=== PATIENT | female | born 1945 | race Two or more races ===

== ENCOUNTER 2017-03-17 12:47 | Inpatient (IN) | payer MEDICAID ==
[~2017-03-17] VITALS: Ht 157.5 cm; Wt 88.8 kg
[2017-03-17] MEDS ORDERED: FUROSEMIDE 40 MG/4 ML VIAL IV ONE (13:00)
[2017-03-17] MEDS ORDERED: NITROGLYCERIN 0.4 MG SL TAB SL ONE ×2 (13:31→13:45)
[2017-03-17 14:01] LABS: DEFINITIVE VIEW TRANSMISSION; Hematocrit 29.7 % (36.0-46.0); Mean Corpuscular Hemoglobin 35.1 pg (28.0-32.0); Mean Corpuscular Hgb Conc. 33.7 g/dL (32.0-36.0); Mean Corpuscular Volume 104.2 fL (80.0-100.0); Mean Platelet Volume 8.9 fL (7.4-10.4); Platelet Count (auto) 241 10^3/uL (140-450); SUSPECT VIEW TRANSMISSION; White Blood Cell 14.2 10^3/uL (4.4-10.8)
[2017-03-17 14:06] LABS: Urine Bilirubin Negative (Negative); Urine Color Yellow (Yellow); Urine Glucose Normal (Normal); Urine Ketone Negative (Negative); Urine Nitrite Negative (Negative); Urine RBC 11 /hpf (0 - 4); Urine Squamous Epithelial Cell FEW /hpf (<5); Urine Urobilinogen Normal (Negative)
[2017-03-17 14:16] LABS: Albumin 2.2 g/dL (3.4-5.0); BUN/Creatinine Ratio 27.5; Bilirubin, Total 0.7 mg/dL (0.2-1.0); Calcium 8.6 mg/dL (8.5-10.1); Lactic Acid w/Reflex 2.4 mmol/L (0.4-2.0); Magnesium 2.2 mg/dL (1.6-2.6); Potassium 4.9 mmol/L (3.5-5.1); Red Cell Distribution Width 22.9 % (11.6-16.0); Total Protein 5.7 g/dL (6.4-8.2)
[2017-03-17 14:17] LABS: Metamyelocytes % 0; Myelocytes % 0; Promyelocytes % 0; Reactive Lymphocytes 0
[2017-03-17 14:18] LABS: Urine Blood 2+ /uL (Negative)
[2017-03-17 14:23] LABS: B-Type Natriuretic Peptide 1185.3 pg/mL (0-100)
[2017-03-17 14:26] LABS: Temperature: 22.5 C (20.0-25.0)
[2017-03-17 14:45] LABS: REFLEX LACTIC ACID YES OR NO YES
[2017-03-17 14:58] LABS: Platelet Estimate Adequate
[2017-03-17 15:00] LABS: Anisocytosis Slight; Burr Cells FEW; Macrocytosis Slight; Ovalocytes FEW; Schistocytes FEW; Tear Drop Cells FEW
[2017-03-17] MEDS ORDERED: ONDANSETRON HCL 4 MG/2 ML VIAL IV PRN (15:00)
[2017-03-17] MEDS ORDERED: cefTRIAXone 1GM/50ML D5W 50 ML IV ONE (15:00)
[2017-03-17] MEDS ORDERED: HYDROcodone-ACET 5/325MG TAB PO PRN (15:00)
[2017-03-17] MEDS ORDERED: NITROGLYCERIN 0.4 MG SL TAB SL PRN (15:00)
[2017-03-17] MEDS ORDERED: MORPHINE SULF INJ 2 MG/ML SYRINGE 1ML IV PRN ×2 (15:00)
[2017-03-17] MEDS ORDERED: SODI650T PO (15:03)
[2017-03-17] MEDS ORDERED: DOCU-94 PO (15:03)
[2017-03-17] MEDS ORDERED: GABA-494 PO (15:03)
[2017-03-17] MEDS ORDERED: ATOR20TA50 PO (15:03)
[2017-03-17] MEDS ORDERED: LOPE1TAB9 PO (15:06)
[2017-03-17] MEDS ORDERED: ONDA8TAB6 PO (15:06)
[2017-03-17] MEDS ORDERED: PANC3600 PO (15:06)
[2017-03-17] MEDS ORDERED: FERR27TA2 PO (15:06)
[2017-03-17] MEDS ORDERED: LOSA100T27 PO (15:09)
[2017-03-17] MEDS ORDERED: CAR125T PO (15:09)
[2017-03-17] MEDS ORDERED: HCTZ25T PO (15:09)
[2017-03-17] MEDS ORDERED: PRO10T PO (15:09)
[2017-03-17] MEDS ORDERED: CARI-277 PO (15:09)
[2017-03-17] MEDS ORDERED: GLIM1TAB2 PO (15:09)
[2017-03-17] MEDS ORDERED: MEGE40SU PO (15:09)
[2017-03-17] MEDS ORDERED: BACL10TA PO (15:11)
[2017-03-17] MEDS ORDERED: METF-371 PO (15:11)
[2017-03-17] MEDS ORDERED: NITR0.2D12 TD (15:11)
[2017-03-17] MEDS ORDERED: OMEP20CA74 PO (15:12)
[2017-03-17 15:15] LABS: Allen Test Yes; Base Excess -8.7 mmol/L (-2.0-2.0); Blood COHb 0.3 % (0.5-1.5); Blood MetHb 0.4 % (0.0-1.5); HCO3 16.1 mmol/L (22-26.0); MODE MASK - BIPAP; O2Hb 98.3 % (94.0-97.0); PO2 455.4 mmHg (80.0-100.0); PO2(T) 455.4 mmHg (80.0-100.0); Room ED-15; Sample Type Arterial; Spont Vt 646; pH 7.333 (7.350-7.450)
[2017-03-17] MEDS ORDERED: ISOSORBIDE MONONITRATE 60 MG TAB PO ONE (15:15)
[2017-03-17] MEDS ORDERED: CARVEDILOL 12.5 MG TAB PO ONE (15:30)
[2017-03-17] MEDS ORDERED: PANTOPRAZOLE SODIUM 40 MG/10 ML VIAL IV ONE (15:30)
[2017-03-17] MEDS: InsuLIN REG 1unit/0.01ml Soln (100units/ml) SC SCH (18:00)
[2017-03-17] MEDS: ACCU-CHEK COMFORT CURVE STRIP VI SCH (18:15)
[2017-03-17 18:43] VITALS: BP 134/90
[2017-03-17] MEDS: CARVEDILOL 12.5 MG TAB PO SCH (22:00)
[2017-03-17] MEDS: metroNIDAZOLE 500MG/100ML 100 ML IV SCH (22:00)
[2017-03-17] MEDS ORDERED: IPRATROPIUM BROM 0.5 MG/2.5ML INH SOL NEB ONE (22:45)
[2017-03-17] MEDS ORDERED: ALBUTEROL SULF 2.5 MG/0.5ML(0.5%) NEB SOLN NEB ONE (22:45)
[2017-03-17] MEDS: LABETALOL HCL 5 MG/ML 4ML SYRINGE IV PRN (22:56)
[2017-03-17 23:15] LABS: Allen Test Yes; Base Excess -9.7 mmol/L (-2.0-2.0); Blood 02Sat 93.9 % (96-100); Blood COHb 0.3 % (0.5-1.5); Blood MetHb 0.4 % (0.0-1.5); HCO3 16.4 mmol/L (22-26.0); HHb 6.1 % (0.0-5.0); MODE MASK - SIMPLE; O2Hb 93.2 % (94.0-97.0); PCO2 36.6 mmHg (35.0-45.0); PCO2(T) 36.6 mmHg (35.0-45.0); PO2 85.2 mmHg (80.0-100.0); PO2(T) 85.2 mmHg (80.0-100.0); Room 1014-ERT; Sample Type Arterial
[2017-03-18] VITALS (12 sets, daily range): BP systolic 104–136; BP diastolic 54–89
[2017-03-18] MEDS ORDERED: IPRATROPIUM BROM 0.5 MG/2.5ML INH SOL NEB ONE
[2017-03-18] MEDS ORDERED: ALBUTEROL SULF 2.5 MG/0.5ML(0.5%) NEB SOLN NEB ONE
[2017-03-18] MEDS ORDERED: FUROSEMIDE 40 MG/4 ML VIAL IV ONE
[2017-03-18] MEDS ORDERED: SODIUM BICARBONATE 8.4 % INJ 50ML VIAL IV ONE (02:30)
[2017-03-18 04:25] LABS: Basophils # (auto) 0 uL; DEFINITIVE VIEW TRANSMISSION; Eosinophils # (auto) 0 uL; Lymphocytes # (auto) 0.8 uL; Lymphocytes % (auto) 7.8 % (10.0-50.0); Mean Corpuscular Hemoglobin 35.6 pg (28.0-32.0); Mean Corpuscular Hgb Conc. 34.5 g/dL (32.0-36.0); Mean Corpuscular Volume 103.1 fL (80.0-100.0); Mean Platelet Volume 8.4 fL (7.4-10.4); Monocytes # (auto) 1.3 uL; Monocytes % (auto) 12.4 % (0.0-12.0); Neutrophils # (auto) 8.7 uL; Neutrophils % (auto) 79.8 % (37.0-80.0); Platelet Count (auto) 162 10^3/uL (140-450); SUSPECT VIEW TRANSMISSION; White Blood Cell 10.8 10^3/uL (4.4-10.8)
[2017-03-18 04:30] LABS: Red Cell Distribution Width 22.3 % (11.6-16.0)
[2017-03-18 04:31] LABS: Hematocrit 23.1 % (36.0-46.0); Hemoglobin 8.2 g/dL (12.2-16.2)
[2017-03-18 04:32] LABS: Albumin 1.8 g/dL (3.4-5.0); BUN/Creatinine Ratio 26.8; Calcium 8.1 mg/dL (8.5-10.1); Partial Thromboplastin Time 25.9 sec (22.64-33.71); Potassium 5.2 mmol/L (3.5-5.1)
[2017-03-18 04:34] LABS: Bilirubin, Total 0.6 mg/dL (0.2-1.0); Total Protein 4.9 g/dL (6.4-8.2)
[2017-03-18 04:49] LABS: INR 1.42 (0.9-1.15); Prothrombin Time 15.5 sec (9.37-12.3)
[2017-03-18] MEDS: InsuLIN REG 1unit/0.01ml Soln (100units/ml) SC SCH ×4 (06:00→18:35)
[2017-03-18] MEDS: ACCU-CHEK COMFORT CURVE STRIP VI SCH ×4 (06:10→18:00)
[2017-03-18] MEDS: metroNIDAZOLE 500MG/100ML 100 ML IV SCH ×3 (06:10→21:02)
[2017-03-18 06:34] LABS: Burr Cells FEW; Macrocytosis Slight; Platelet Estimate Adequate; Polychromasia Slight
[2017-03-18 06:35] LABS: Anisocytosis Slight
[2017-03-18 08:30] LABS: Allen Test Yes; Base Excess -4.7 mmol/L (-2.0-2.0); Blood 02Sat 95.7 % (96-100); Blood MetHb 0.4 % (0.0-1.5); HCO3 18.4 mmol/L (22-26.0); HHb 4.3 % (0.0-5.0); MODE MASK - BIPAP; O2Hb 95.3 % (94.0-97.0); PCO2 26.4 mmHg (35.0-45.0); PCO2(T) 26.4 mmHg (35.0-45.0); PIP 12; PO2 90.8 mmHg (80.0-100.0); PO2(T) 90.8 mmHg (80.0-100.0); Pressure Support 7; Room 1014-ERT; Sample Type Arterial
[2017-03-18] MEDS: cefTRIAXone 1GM/50ML D5W 50 ML IV SCH (09:10)
[2017-03-18] MEDS: CARVEDILOL 12.5 MG TAB PO SCH (10:00)
[2017-03-18] MEDS: ISOSORBIDE MONONITRATE 60 MG TAB PO SCH (10:00)
[2017-03-18] MEDS: PANTOPRAZOLE SODIUM 40 MG/10 ML VIAL IV SCH (10:21)
[2017-03-18] MEDS: ENOXAPARIN SOD 40 MG/0.4 ML SYRINGE SC SCH (10:21)
[2017-03-18] MEDS ORDERED: CARVEDILOL 3.125 MG TAB PO ONE (18:15)
[2017-03-18] MEDS ORDERED: SPIRONOLACTONE 25 MG TAB PO ONE (18:15)
[2017-03-18] MEDS: BUMETANIDE (0.25MG/ML) 4 ML VIAL IV SCH (18:36)
[2017-03-18] MEDS: LORazepam 2MG/ML-1ML VIAL IV PRN (19:03)
[2017-03-18] MEDS: CARVEDILOL 3.125 MG TAB PO SCH (21:02)
[2017-03-19] VITALS (8 sets, daily range): BP systolic 118–151; BP diastolic 69–89
[2017-03-19] MEDS: ACCU-CHEK COMFORT CURVE STRIP VI SCH ×4 (00:01→18:07)
[2017-03-19] MEDS: BUMETANIDE (0.25MG/ML) 4 ML VIAL IV SCH ×2 (05:29→18:37)
[2017-03-19] MEDS: metroNIDAZOLE 500MG/100ML 100 ML IV SCH ×3 (05:30→20:57)
[2017-03-19] MEDS: SPIRONOLACTONE 25 MG TAB PO SCH ×2 (05:30→18:00)
[2017-03-19] MEDS: LORazepam 2MG/ML-1ML VIAL IV PRN (05:43)
[2017-03-19] MEDS: InsuLIN REG 1unit/0.01ml Soln (100units/ml) SC SCH ×4 (06:00→18:00)
[2017-03-19 06:44] LABS: Potassium 4.7 mmol/L (3.5-5.1)
[2017-03-19 06:47] LABS: Albumin 2.1 g/dL (3.4-5.0); BUN/Creatinine Ratio 27.6; Calcium 8.5 mg/dL (8.5-10.1)
[2017-03-19 07:07] LABS: Bilirubin, Total 0.8 mg/dL (0.2-1.0); Total Protein 5.2 g/dL (6.4-8.2)
[2017-03-19] MEDS: IPRATROPIUM BROM 0.5 MG/2.5ML INH SOL NEB SCH ×2 (09:07→19:26)
[2017-03-19] MEDS: ALBUTEROL SULF 2.5 MG/0.5ML(0.5%) NEB SOLN NEB SCH ×2 (09:08→19:26)
[2017-03-19] MEDS: PANTOPRAZOLE SODIUM 40 MG/10 ML VIAL IV SCH (10:15)
[2017-03-19] MEDS: ISOSORBIDE MONONITRATE 60 MG TAB PO SCH (10:15)
[2017-03-19] MEDS: ENOXAPARIN SOD 40 MG/0.4 ML SYRINGE SC SCH (10:15)
[2017-03-19] MEDS: cefTRIAXone 1GM/50ML D5W 50 ML IV SCH (10:15)
[2017-03-19] MEDS: CARVEDILOL 3.125 MG TAB PO SCH ×2 (10:15→20:57)
[2017-03-19 11:23] LABS: Allen Test Yes; Blood 02Sat 94.8 % (96-100); Blood COHb 0.2 % (0.5-1.5); Blood MetHb 0.3 % (0.0-1.5); HHb 5.2 % (0.0-5.0); MODE MASK - BIPAP; O2Hb 94.3 % (94.0-97.0); PCO2 26.3 mmHg (35.0-45.0); PCO2(T) 26.3 mmHg (35.0-45.0); PO2 85.3 mmHg (80.0-100.0); PO2(T) 85.3 mmHg (80.0-100.0); Room 0261D; Sample Type Arterial; pH 7.375 (7.350-7.450)
[2017-03-20] VITALS: BP 120/57
[2017-03-20] MEDS: IPRATROPIUM BROM 0.5 MG/2.5ML INH SOL NEB SCH ×3 (00:41→18:53)
[2017-03-20] MEDS: ALBUTEROL SULF 2.5 MG/0.5ML(0.5%) NEB SOLN NEB SCH ×4 (00:41→18:53)
[2017-03-20 04:00] VITALS: BP 100/61
[2017-03-20] MEDS: SPIRONOLACTONE 25 MG TAB PO SCH ×2 (05:47→18:49)
[2017-03-20] MEDS: metroNIDAZOLE 500MG/100ML 100 ML IV SCH ×3 (05:48→22:37)
[2017-03-20] MEDS: BUMETANIDE (0.25MG/ML) 4 ML VIAL IV SCH ×2 (05:48→18:46)
[2017-03-20] MEDS: InsuLIN REG 1unit/0.01ml Soln (100units/ml) SC SCH ×4 (06:00→19:23)
[2017-03-20] MEDS: ACCU-CHEK COMFORT CURVE STRIP VI SCH ×4 (06:00→19:23)
[2017-03-20 07:40] LABS: Potassium 4.2 mmol/L (3.5-5.1)
[2017-03-20 07:45] LABS: BUN/Creatinine Ratio 27.5; Calcium 8.1 mg/dL (8.5-10.1)
[2017-03-20 07:48] LABS: Bilirubin, Total 0.9 mg/dL (0.2-1.0); Total Protein 5.1 g/dL (6.4-8.2)
[2017-03-20 08:00] VITALS: BP 139/69
[2017-03-20] MEDS: cefTRIAXone 1GM/50ML D5W 50 ML IV SCH (08:01)
[2017-03-20] MEDS: ISOSORBIDE MONONITRATE 60 MG TAB PO SCH (10:00)
[2017-03-20] MEDS: PANTOPRAZOLE SODIUM 40 MG/10 ML VIAL IV SCH (10:00)
[2017-03-20] MEDS: ENOXAPARIN SOD 40 MG/0.4 ML SYRINGE SC SCH (10:01)
[2017-03-20] MEDS: CARVEDILOL 3.125 MG TAB PO SCH ×2 (10:01→22:37)
[2017-03-20 10:52] LABS: BUN/Creatinine Ratio 25.3; Basophils # (auto) 0 uL; Basophils % (auto) 0.2 % (0.0-2.0); Bilirubin, Total 0.9 mg/dL (0.2-1.0); CONDITION Y; Calcium 8.2 mg/dL (8.5-10.1); DEFINITIVE Y; Eosinophils # (auto) 0 uL; Eosinophils % (auto) 0.3 % (0.0-7.0); Hematocrit 21.5 % (36.0-46.0); Hemoglobin 7.3 g/dL (12.2-16.2); Lymphocytes # (auto) 0.9 uL; Lymphocytes % (auto) 9.8 % (10.0-50.0); Mean Corpuscular Hemoglobin 35.1 pg (28.0-32.0); Mean Corpuscular Hgb Conc. 33.9 g/dL (32.0-36.0); Mean Corpuscular Volume 103.5 fL (80.0-100.0); Mean Platelet Volume 9.4 fL (7.4-10.4); Monocytes # (auto) 1.3 uL; Monocytes % (auto) 14.7 % (0.0-12.0); Neutrophils # (auto) 6.8 uL; Platelet Count (auto) 206 10^3/uL (140-450); Potassium 3.9 mmol/L (3.5-5.1); SUSPECT Y; White Blood Cell 9.1 10^3/uL (4.4-10.8)
[2017-03-20 11:00] LABS: Red Cell Distribution Width 22.3 % (11.6-16.0)
[2017-03-20 11:24] LABS: Anisocytosis Moderate; Burr Cells FEW; Macrocytosis Slight; Platelet Estimate Adequate
[2017-03-20 11:25] LABS: Ovalocytes FEW; Schistocytes FEW; Tear Drop Cells FEW
[2017-03-20 12:00] VITALS: BP 122/78
[2017-03-20 13:29] LABS: B-Type Natriuretic Peptide 1868.61 pg/mL (0-100)
[2017-03-20 13:30] LABS: Temperature: 23.7 C (20.0-25.0)
[2017-03-20 16:00] VITALS: BP 129/72
[2017-03-20 22:00] VITALS: BP 171/81
[2017-03-21] VITALS (24 sets, daily range): BP systolic 90–146; BP diastolic 45–92
[2017-03-21] MEDS: ALBUTEROL SULF 2.5 MG/0.5ML(0.5%) NEB SOLN NEB SCH ×4 (00:42→18:00)
[2017-03-21] MEDS: IPRATROPIUM BROM 0.5 MG/2.5ML INH SOL NEB SCH ×4 (00:43→18:00)
[2017-03-21] MEDS: LORazepam 2MG/ML-1ML VIAL IV PRN (02:50)
[2017-03-21] MEDS: InsuLIN REG 1unit/0.01ml Soln (100units/ml) SC SCH ×4 (06:00→18:30)
[2017-03-21] MEDS: ACCU-CHEK COMFORT CURVE STRIP VI SCH ×4 (06:00→18:30)
[2017-03-21] MEDS: LABETALOL HCL 5 MG/ML 4ML SYRINGE IV PRN (06:00)
[2017-03-21] MEDS ORDERED: DILTIAZEM HCL 25 MG/5 ML VIAL IV ONE ×2 (06:07→06:15)
[2017-03-21 06:54] LABS: Basophils # (auto) 0 uL; CONDITION AutoValidated; DEFINITIVE SEE PRINTOUT; Eosinophils # (auto) 0 uL; Eosinophils % (auto) 0.3 % (0.0-7.0); Hematocrit 21.3 % (36.0-46.0); Hemoglobin 7.3 g/dL (12.2-16.2); Lymphocytes # (auto) 0.7 uL; Lymphocytes % (auto) 8.1 % (10.0-50.0); Mean Corpuscular Hemoglobin 35.4 pg (28.0-32.0); Mean Corpuscular Hgb Conc. 34.4 g/dL (32.0-36.0); Mean Corpuscular Volume 102.8 fL (80.0-100.0); Monocytes # (auto) 1.2 uL; Monocytes % (auto) 13.9 % (0.0-12.0); Neutrophils # (auto) 6.5 uL; Neutrophils % (auto) 77.7 % (37.0-80.0); Platelet Count (auto) 231 10^3/uL (140-450); SUSPECT SEE PRINTOUT; White Blood Cell 8.4 10^3/uL (4.4-10.8)
[2017-03-21] MEDS: BUMETANIDE (0.25MG/ML) 4 ML VIAL IV SCH ×2 (06:58→18:29)
[2017-03-21] MEDS: SPIRONOLACTONE 25 MG TAB PO SCH ×2 (06:59→18:00)
[2017-03-21] MEDS: metroNIDAZOLE 500MG/100ML 100 ML IV SCH (06:59)
[2017-03-21 07:21] LABS: Albumin 1.9 g/dL (3.4-5.0); BUN/Creatinine Ratio 26.8; Calcium 7.8 mg/dL (8.5-10.1); Total Protein 5.1 g/dL (6.4-8.2)
[2017-03-21 07:24] LABS: Red Cell Distribution Width 22.4 % (11.6-16.0)
[2017-03-21] MEDS ORDERED: DILTIAZEM HCL 25 MG/5 ML VIAL IV PRN (07:45)
[2017-03-21 07:49] LABS: Platelet Estimate Adequate
[2017-03-21 07:50] LABS: Anisocytosis Moderate; Burr Cells FEW; Macrocytosis Moderate; Ovalocytes FEW
[2017-03-21] MEDS: cefTRIAXone 1GM/50ML D5W 50 ML IV SCH (09:00)
[2017-03-21] MEDS: ENOXAPARIN SOD 40 MG/0.4 ML SYRINGE SC SCH (10:00)
[2017-03-21] MEDS: PANTOPRAZOLE SODIUM 40 MG/10 ML VIAL IV SCH (10:25)
[2017-03-21] MEDS: CARVEDILOL 3.125 MG TAB PO SCH ×2 (10:25→15:00)
[2017-03-21] MEDS: ISOSORBIDE MONONITRATE 60 MG TAB PO SCH (10:26)
[2017-03-21] MEDS ORDERED: AMIODARONE HCL 150 MG in D5W 5% 100 ML IV ONE (10:45)
[2017-03-21] MEDS ORDERED: AMIODARONE HCL 900 MG in DEXTROSE 500 ML IV SCH ×3 (10:47→16:47)
[2017-03-21] MEDS ORDERED: fentaNYL CITRATE 100 MCG/2 ML VL ONE (11:34)
[2017-03-21] MEDS ORDERED: MIDAZOLAM HCL 1MG/1ML-2 ML VIAL ONE (11:35)
[2017-03-21] MEDS ORDERED: BUMETANIDE (0.25MG/ML) 4 ML VIAL IV ONE (12:00)
[2017-03-21] MEDS ORDERED: IOHEXOL 350 MG/ML 100ML IJ ONE (12:07)
[2017-03-21] MEDS ORDERED: LIDOCAINE 2%HCL (LOCAL ANESTH.) INJ 20ML MDV ONE (12:07)
[2017-03-21] MEDS ORDERED: FUROSEMIDE 40 MG/4 ML VIAL ONE (12:55)
[2017-03-21] MEDS ORDERED: MORPHINE SULF INJ 2 MG/ML SYRINGE 1ML ONE (13:01)
[2017-03-21 14:06] LABS: Vitamin D 25-Hydroxy 4.9 ng/mL (.); Vitamin D-2 25-Hydroxy <1.0 ng/mL (.)
[2017-03-21] MEDS: metroNIDAZOLE 500 MG TAB PO SCH ×2 (15:02→22:06)
[2017-03-22] VITALS (31 sets, daily range): BP systolic 117–148; BP diastolic 38–100
[2017-03-22] MEDS: ALBUTEROL SULF 2.5 MG/0.5ML(0.5%) NEB SOLN NEB SCH ×4 (00:35→18:47)
[2017-03-22] MEDS: IPRATROPIUM BROM 0.5 MG/2.5ML INH SOL NEB SCH ×4 (00:35→18:47)
[2017-03-22] MEDS: MORPHINE SULF INJ 2 MG/ML SYRINGE 1ML IV PRN ×2 (02:39→10:08)
[2017-03-22 04:15] LABS: Albumin 1.9 g/dL (3.4-5.0); BUN/Creatinine Ratio 28.1; Calcium 7.5 mg/dL (8.5-10.1)
[2017-03-22 04:18] LABS: Bilirubin, Total 1.2 mg/dL (0.2-1.0); Total Protein 5.2 g/dL (6.4-8.2)
[2017-03-22 04:19] LABS: Potassium 4.2 mmol/L (3.5-5.1)
[2017-03-22 04:20] LABS: Basophils # (auto) 0 uL; CONDITION AutoValidated; DEFINITIVE SEE PRINTOUT; Eosinophils # (auto) 0.1 uL; Eosinophils % (auto) 1.8 % (0.0-7.0); Hematocrit 23.9 % (36.0-46.0); Hemoglobin 8.2 g/dL (12.2-16.2); Lymphocytes # (auto) 0.7 uL; Mean Corpuscular Hemoglobin 34.7 pg (28.0-32.0); Mean Corpuscular Hgb Conc. 34.2 g/dL (32.0-36.0); Mean Corpuscular Volume 101.3 fL (80.0-100.0); Mean Platelet Volume 8.6 fL (7.4-10.4); Monocytes # (auto) 1.2 uL; Monocytes % (auto) 17.6 % (0.0-12.0); Neutrophils # (auto) 4.6 uL; Neutrophils % (auto) 70.6 % (37.0-80.0); Platelet Count (auto) 228 10^3/uL (140-450); SUSPECT SEE PRINTOUT; White Blood Cell 6.6 10^3/uL (4.4-10.8)
[2017-03-22 04:24] LABS: Red Cell Distribution Width 25.7 % (11.6-16.0)
[2017-03-22 05:03] LABS: Anisocytosis Moderate; Burr Cells FEW; Macrocytosis Slight; Ovalocytes FEW; Platelet Estimate Adequate
[2017-03-22] MEDS: ACCU-CHEK COMFORT CURVE STRIP VI SCH ×5 (05:43→23:57)
[2017-03-22] MEDS: InsuLIN REG 1unit/0.01ml Soln (100units/ml) SC SCH ×5 (05:43→23:57)
[2017-03-22] MEDS: BUMETANIDE (0.25MG/ML) 4 ML VIAL IV SCH (05:53)
[2017-03-22] MEDS: metroNIDAZOLE 500 MG TAB PO SCH ×3 (05:53→21:41)
[2017-03-22] MEDS: SPIRONOLACTONE 25 MG TAB PO SCH ×2 (05:53→17:57)
[2017-03-22] MEDS: cefTRIAXone 1GM/50ML D5W 50 ML IV SCH (09:15)
[2017-03-22] MEDS: CARVEDILOL 3.125 MG TAB PO SCH ×2 (10:10→21:40)
[2017-03-22] MEDS: PANTOPRAZOLE 40 MG TAB PO SCH (10:10)
[2017-03-22] MEDS ORDERED: HEPARIN DRIP/D5W 100UNITS/ML 250 ML IV SCH (10:38)
[2017-03-22] MEDS ORDERED: AMIODARONE HCL 900 MG in DEXTROSE 500 ML IV SCH (10:50)
[2017-03-22 12:04] LABS: Partial Thromboplastin Time 28.7 sec (22.64-33.71)
[2017-03-22 12:05] LABS: INR 1.9 (0.9-1.15); Prothrombin Time 20.8 sec (9.37-12.3)
[2017-03-22] MEDS: LORazepam 2MG/ML-1ML VIAL IV PRN (14:32)
[2017-03-22] MEDS: ARTIFICIAL TEARS 15ml EACHEYE PRN ×2 (15:12→22:48)
[2017-03-22] MEDS: BUDESONIDE (INHALATION) 0.5 MG/2 ML NEB NEB SCH ×2 (18:47→22:00)
[2017-03-23] VITALS (24 sets, daily range): BP systolic 91–153; BP diastolic 39–113
[2017-03-23] MEDS: ALBUTEROL SULF 2.5 MG/0.5ML(0.5%) NEB SOLN NEB SCH ×4 (00:26→18:00)
[2017-03-23] MEDS: IPRATROPIUM BROM 0.5 MG/2.5ML INH SOL NEB SCH ×4 (00:27→18:00)
[2017-03-23] MEDS: metroNIDAZOLE 500 MG TAB PO SCH ×3 (05:40→21:30)
[2017-03-23] MEDS: InsuLIN REG 1unit/0.01ml Soln (100units/ml) SC SCH ×4 (05:40→23:50)
[2017-03-23] MEDS: SPIRONOLACTONE 25 MG TAB PO SCH ×2 (05:40→18:13)
[2017-03-23] MEDS: ACCU-CHEK COMFORT CURVE STRIP VI SCH ×4 (05:40→23:50)
[2017-03-23] MEDS: BUDESONIDE (INHALATION) 0.5 MG/2 ML NEB NEB SCH (07:17)
[2017-03-23 08:15] LABS: Partial Thromboplastin Time 34.3 sec (22.64-33.71)
[2017-03-23 08:17] LABS: INR 1.93 (0.9-1.15); Prothrombin Time 21.2 sec (9.37-12.3)
[2017-03-23] MEDS: cefTRIAXone 1GM/50ML D5W 50 ML IV SCH (09:13)
[2017-03-23] MEDS: PANTOPRAZOLE 40 MG TAB PO SCH (09:39)
[2017-03-23] MEDS: CARVEDILOL 3.125 MG TAB PO SCH ×2 (09:42→21:30)
[2017-03-23] MEDS ORDERED: LACTULOSE 20Gm/30ML SOLN ONE (10:41)
[2017-03-23] MEDS ORDERED: LACTULOSE 20Gm/30ML SOLN PO PRN (10:45)
[2017-03-23] MEDS ORDERED: AMIODARONE HCL 200 MG TAB ONE (12:15)
[2017-03-23 13:08] LABS: Calcium 7.8 mg/dL (8.5-10.1); Potassium 3.8 mmol/L (3.5-5.1)
[2017-03-23] MEDS: LORazepam 2MG/ML-1ML VIAL IV PRN (16:08)
[2017-03-23] MEDS ORDERED: POTASSIUM CHL 20 Meq TABLET PO ONE ×3 (16:42→23:00)
[2017-03-23] MEDS ORDERED: FUROSEMIDE INJECTION 10 ML ONE (16:42)
[2017-03-23] MEDS ORDERED: FUROSEMIDE 20 MG/2 ML VIAL IV ONE (16:45)
[2017-03-23 19:25] LABS: Magnesium 1.6 mg/dL (1.6-2.6)
[2017-03-23] MEDS ORDERED: AMIODARONE HCL (50 MG/ ML) 3 ML VIAL IV ONE (19:54)
[2017-03-23] MEDS ORDERED: DIGOXIN (250MCG/ML) 2 ML AMPULE IV ONE (20:00)
[2017-03-23] MEDS ORDERED: AMIODARONE HCL 150 MG in D5W 5% 100 ML IV ONE (20:00)
[2017-03-23] MEDS ORDERED: DIGOXIN (250MCG/ML) 2 ML AMPULE ONE (20:25)
[2017-03-23] MEDS: MORPHINE SULF INJ 2 MG/ML SYRINGE 1ML IV PRN (21:29)
[2017-03-23] MEDS ORDERED: AMIODARONE HCL 200 MG TAB PO SCH (22:00)
[2017-03-23] MEDS: MAGNESIUM SULFATE 1GM/100ML 100 ML IV SCH ×2 (22:37→23:48)
[2017-03-23] MEDS ORDERED: AMIODARONE HCL 900 MG in DEXTROSE 500 ML IV SCH (23:55)
[2017-03-24] VITALS (34 sets, daily range): BP systolic 91–192; BP diastolic 47–110
[2017-03-24] MEDS: IPRATROPIUM BROM 0.5 MG/2.5ML INH SOL NEB SCH ×5 (00:30→23:17)
[2017-03-24] MEDS: ALBUTEROL SULF 2.5 MG/0.5ML(0.5%) NEB SOLN NEB SCH ×5 (00:30→23:17)
[2017-03-24] MEDS: BUDESONIDE (INHALATION) 0.5 MG/2 ML NEB NEB SCH ×3 (00:31→18:35)
[2017-03-24] MEDS ORDERED: DIGOXIN (250MCG/ML) 2 ML AMPULE IV ONE (01:00)
[2017-03-24 03:49] LABS: CONDITION AutoValidated; DEFINITIVE SEE PRINTOUT; Hematocrit 28.2 % (36.0-46.0); Hemoglobin 9.6 g/dL (12.2-16.2); Mean Corpuscular Hemoglobin 34.7 pg (28.0-32.0); Mean Corpuscular Hgb Conc. 33.9 g/dL (32.0-36.0); Mean Platelet Volume 8.8 fL (7.4-10.4); Platelet Count (auto) 238 10^3/uL (140-450); White Blood Cell 11.4 10^3/uL (4.4-10.8)
[2017-03-24 04:01] LABS: Mean Corpuscular Volume 102.1 fL (80.0-100.0); Red Cell Distribution Width 25.3 % (11.6-16.0)
[2017-03-24 04:02] LABS: Metamyelocytes % 0; Myelocytes % 0; Promyelocytes % 0; Reactive Lymphocytes 0
[2017-03-24 04:03] LABS: Partial Thromboplastin Time 30.6 sec (22.64-33.71)
[2017-03-24 04:05] LABS: INR 1.78 (0.9-1.15); Prothrombin Time 19.5 sec (9.37-12.3)
[2017-03-24 04:13] LABS: Albumin 1.9 g/dL (3.4-5.0); BUN/Creatinine Ratio 24.8; Calcium 7.8 mg/dL (8.5-10.1); Potassium 4.4 mmol/L (3.5-5.1)
[2017-03-24 04:16] LABS: Bilirubin, Total 0.6 mg/dL (0.2-1.0); Total Protein 5.3 g/dL (6.4-8.2)
[2017-03-24 04:51] LABS: Anisocytosis Moderate; Burr Cells MODERATE; Platelet Estimate Adequate
[2017-03-24 04:52] LABS: Hypersegmented Neutrophils Present; Macrocytosis Slight; Ovalocytes FEW; Polychromasia Slight; Schistocytes FEW
[2017-03-24] MEDS: metroNIDAZOLE 500 MG TAB PO SCH ×3 (05:35→22:02)
[2017-03-24] MEDS: InsuLIN REG 1unit/0.01ml Soln (100units/ml) SC SCH ×4 (05:35→17:36)
[2017-03-24] MEDS: SPIRONOLACTONE 25 MG TAB PO SCH ×2 (05:35→17:38)
[2017-03-24] MEDS: ACCU-CHEK COMFORT CURVE STRIP VI SCH ×3 (05:35→17:38)
[2017-03-24] MEDS ORDERED: FUROSEMIDE 100 MG/10ML VIAL IV ONE (09:30)
[2017-03-24] MEDS ORDERED: AMIODARONE HCL 200 MG TAB PO ONE (09:30)
[2017-03-24] MEDS ORDERED: CAPTOPRIL 12.5 MG TAB PO ONE (09:30)
[2017-03-24] MEDS: cefTRIAXone 1GM/50ML D5W 50 ML IV SCH (09:31)
[2017-03-24] MEDS: PANTOPRAZOLE 40 MG TAB PO SCH (09:36)
[2017-03-24] MEDS: CARVEDILOL 3.125 MG TAB PO SCH ×2 (09:37→22:01)
[2017-03-24] MEDS: AMIODARONE HCL 200 MG TAB PO SCH ×2 (14:10→22:01)
[2017-03-24] MEDS ORDERED: HYDROcodone-ACET 5/325MG TAB PO PRN (14:45)
[2017-03-24] MEDS ORDERED: MORPHINE SULF INJ 2 MG/ML SYRINGE 1ML IV PRN (14:45)
[2017-03-24] MEDS: LORazepam 2MG/ML-1ML VIAL IV PRN (22:16)
[2017-03-24] MEDS: MORPHINE SULF INJ 2 MG/ML SYRINGE 1ML IV PRN (22:51)
[2017-03-24] MEDS ORDERED: FUROSEMIDE 40 MG/4 ML VIAL ONE (23:21)
[2017-03-24] MEDS ORDERED: FUROSEMIDE 40 MG/4 ML VIAL IV ONE (23:30)
[2017-03-24] MEDS ORDERED: ALBUTEROL SULF 2.5 MG/0.5ML(0.5%) NEB SOLN NEB PRN (23:30)
[2017-03-25] VITALS (75 sets, daily range): BP systolic 102–180; BP diastolic 42–98
[2017-03-25] MEDS: ACCU-CHEK COMFORT CURVE STRIP VI SCH ×5 (00:06→23:48)
[2017-03-25] MEDS: CAPTOPRIL 12.5 MG TAB PO SCH ×3 (00:11→22:05)
[2017-03-25] MEDS: metroNIDAZOLE 500 MG TAB PO SCH ×4 (00:11→22:08)
[2017-03-25 03:56] LABS: Basophils # (auto) 0 uL; Basophils % (auto) 0.1 % (0.0-2.0); CONDITION Y; DEFINITIVE SEE PRINTOUT; Eosinophils # (auto) 0 uL; Eosinophils % (auto) 0.1 % (0.0-7.0); Hematocrit 29.3 % (36.0-46.0); Hemoglobin 9.8 g/dL (12.2-16.2); Lymphocytes # (auto) 0.6 uL; Mean Corpuscular Hemoglobin 34.6 pg (28.0-32.0); Mean Corpuscular Hgb Conc. 33.5 g/dL (32.0-36.0); Mean Corpuscular Volume 103.3 fL (80.0-100.0); Mean Platelet Volume 9.5 fL (7.4-10.4); Monocytes # (auto) 1.9 uL; Monocytes % (auto) 13.3 % (0.0-12.0); Neutrophils # (auto) 11.7 uL; Neutrophils % (auto) 82.5 % (37.0-80.0); Platelet Count (auto) 189 10^3/uL (140-450); SUSPECT SEE PRINTOUT; White Blood Cell 14.2 10^3/uL (4.4-10.8)
[2017-03-25 04:19] LABS: Red Cell Distribution Width 27.6 % (11.6-16.0)
[2017-03-25 04:24] LABS: Calcium 7.6 mg/dL (8.5-10.1); Potassium 4.9 mmol/L (3.5-5.1)
[2017-03-25 04:26] LABS: BUN/Creatinine Ratio 24.3
[2017-03-25 04:54] LABS: Anisocytosis Moderate; Hypersegmented Neutrophils Present; Macrocytosis Slight; Platelet Estimate Adequate
[2017-03-25 04:55] LABS: Burr Cells FEW; Ovalocytes MODERATE; Polychromasia Slight; Schistocytes FEW
[2017-03-25] MEDS: IPRATROPIUM BROM 0.5 MG/2.5ML INH SOL NEB SCH ×3 (05:57→18:55)
[2017-03-25] MEDS: ALBUTEROL SULF 2.5 MG/0.5ML(0.5%) NEB SOLN NEB SCH ×3 (05:57→18:54)
[2017-03-25] MEDS: InsuLIN REG 1unit/0.01ml Soln (100units/ml) SC SCH ×5 (06:00→23:52)
[2017-03-25] MEDS: SPIRONOLACTONE 25 MG TAB PO SCH (06:18)
[2017-03-25] MEDS: AMIODARONE HCL 200 MG TAB PO SCH ×3 (06:21→22:05)
[2017-03-25 08:48] LABS: Allen Test Yes; Base Excess -5.2 mmol/L (-2.0-2.0); Blood 02Sat 88.7 % (96-100); Blood COHb 0.7 % (0.5-1.5); Blood MetHb 0.3 % (0.0-1.5); HCO3 18.3 mmol/L (22-26.0); HHb 11.2 % (0.0-5.0); MODE MASK - BIPAP; O2Hb 87.8 % (94.0-97.0); PCO2 29.1 mmHg (35.0-45.0); PCO2(T) 29.1 mmHg (35.0-45.0); PO2 59.4 mmHg (80.0-100.0); PO2(T) 59.4 mmHg (80.0-100.0); Sample Type Arterial; pH 7.417 (7.350-7.450)
[2017-03-25] MEDS: cefTRIAXone 1GM/50ML D5W 50 ML IV SCH (09:02)
[2017-03-25] MEDS: CARVEDILOL 3.125 MG TAB PO SCH ×2 (11:00→22:06)
[2017-03-25] MEDS: PANTOPRAZOLE 40 MG TAB PO SCH (11:00)
[2017-03-25] MEDS: DOBUTamine 1000MCG/ML 250 ML IV SCH (11:00)
[2017-03-25] MEDS: BUDESONIDE (INHALATION) 0.5 MG/2 ML NEB NEB SCH ×2 (11:57→18:55)
[2017-03-25] MEDS ORDERED: BUMETANIDE (0.25MG/ML) 4 ML VIAL IV ONE (15:15)
[2017-03-25] MEDS: MORPHINE SULF INJ 2 MG/ML SYRINGE 1ML IV PRN (17:41)
[2017-03-25] MEDS: LORazepam 2MG/ML-1ML VIAL IV PRN (22:09)
[2017-03-26] VITALS (97 sets, daily range): BP systolic 77–135; BP diastolic 30–69
[2017-03-26] MEDS: ALBUTEROL SULF 2.5 MG/0.5ML(0.5%) NEB SOLN NEB SCH ×5 (00:16→23:51)
[2017-03-26] MEDS: IPRATROPIUM BROM 0.5 MG/2.5ML INH SOL NEB SCH ×5 (00:16→23:51)
[2017-03-26 01:03] LABS: Allen Test Modified; Base Excess -4.1 mmol/L (-2.0-2.0); Blood 02Sat 89.6 % (96-100); Blood MetHb 0.4 % (0.0-1.5); HCO3 20.1 mmol/L (22-26.0); HHb 10.4 % (0.0-5.0); MODE MASK - BIPAP; O2Hb 89.2 % (94.0-97.0); PCO2 33.2 mmHg (35.0-45.0); PCO2(T) 33.2 mmHg (35.0-45.0); PIP 12; PO2 61.3 mmHg (80.0-100.0); PO2(T) 61.3 mmHg (80.0-100.0); Sample Type Arterial; Spont Vt 544; pH 7.399 (7.350-7.450)
[2017-03-26] MEDS: MORPHINE SULF INJ 2 MG/ML SYRINGE 1ML IV PRN (01:22)
[2017-03-26 04:00] LABS: Basophils # (auto) 0 uL; CONDITION Y; DEFINITIVE SEE PRINTOUT; Eosinophils # (auto) 0 uL; Eosinophils % (auto) 0.1 % (0.0-7.0); Hematocrit 27.1 % (36.0-46.0); Hemoglobin 9.1 g/dL (12.2-16.2); Lymphocytes # (auto) 0.4 uL; Lymphocytes % (auto) 2.3 % (10.0-50.0); Mean Corpuscular Hemoglobin 34.9 pg (28.0-32.0); Mean Corpuscular Hgb Conc. 33.5 g/dL (32.0-36.0); Mean Corpuscular Volume 104.3 fL (80.0-100.0); Mean Platelet Volume 9.9 fL (7.4-10.4); Monocytes % (auto) 10.2 % (0.0-12.0); Neutrophils % (auto) 87.4 % (37.0-80.0); Platelet Count (auto) 163 10^3/uL (140-450); SUSPECT SEE PRINTOUT; White Blood Cell 19.5 10^3/uL (4.4-10.8)
[2017-03-26 04:23] LABS: Red Cell Distribution Width 31.4 % (11.6-16.0)
[2017-03-26 04:29] LABS: Calcium 7.8 mg/dL (8.5-10.1); Potassium 4.7 mmol/L (3.5-5.1)
[2017-03-26 04:33] LABS: BUN/Creatinine Ratio 24.8
[2017-03-26] MEDS: DOBUTamine 1000MCG/ML 250 ML IV SCH (05:02)
[2017-03-26] MEDS ORDERED: FUROSEMIDE 20 MG/2 ML VIAL ONE (05:04)
[2017-03-26] MEDS ORDERED: FUROSEMIDE 20 MG/2 ML VIAL IV ONE (05:15)
[2017-03-26 05:16] LABS: Anisocytosis Marked; Hypersegmented Neutrophils Present; Macrocytosis Slight; Platelet Estimate Adequate; Schistocytes FEW
[2017-03-26 05:17] LABS: Burr Cells FEW; Ovalocytes MODE
[2017-03-26] MEDS: ACCU-CHEK COMFORT CURVE STRIP VI SCH ×3 (05:54→18:00)
[2017-03-26] MEDS: InsuLIN REG 1unit/0.01ml Soln (100units/ml) SC SCH ×3 (05:54→18:00)
[2017-03-26] MEDS: metroNIDAZOLE 500 MG TAB PO SCH (06:00)
[2017-03-26] MEDS: AMIODARONE HCL 200 MG TAB PO SCH ×3 (06:01→22:17)
[2017-03-26] MEDS: BUDESONIDE (INHALATION) 0.5 MG/2 ML NEB NEB SCH ×2 (06:59→18:10)
[2017-03-26] MEDS: cefTRIAXone 1GM/50ML D5W 50 ML IV SCH (09:00)
[2017-03-26] MEDS ORDERED: SUCCINYLCHOLINE CHLORIDE 20 MG/ML 10ML VIAL IV ONE (09:01)
[2017-03-26] MEDS ORDERED: ROCURONIUM 10MG/ML 10ML VIAL IV ONE (09:01)
[2017-03-26] MEDS ORDERED: ETOMIDATE (2MG/ML) 20ML VIAL IV ONE (09:01)
[2017-03-26] MEDS: PROPOFOL 100 ML IV SCH (09:14)
[2017-03-26 09:16] LABS: Allen Test Yes; Base Excess -6.7 mmol/L (-2.0-2.0); Blood 02Sat 93.3 % (96-100); Blood COHb 0.3 % (0.5-1.5); Blood MetHb 0.2 % (0.0-1.5); HCO3 18.3 mmol/L (22-26.0); HHb 6.7 % (0.0-5.0); MODE MASK - BIPAP; O2Hb 92.8 % (94.0-97.0); PCO2 34.3 mmHg (35.0-45.0); PCO2(T) 34.3 mmHg (35.0-45.0); PO2 78.4 mmHg (80.0-100.0); PO2(T) 78.4 mmHg (80.0-100.0); Sample Type Arterial; pH 7.344 (7.350-7.450)
[2017-03-26] MEDS: MIDAZOLAM DRIP 100 mg/100mL NS 100 ML IV SCH ×2 (09:30→18:36)
[2017-03-26] MEDS: fentaNYL Drip 2500mCg/250mlNS 250 ML IV SCH (09:30)
[2017-03-26] MEDS ORDERED: NOREPINEPHRINE BITARTRATE 250 ML IV ONE (09:59)
[2017-03-26] MEDS: CAPTOPRIL 12.5 MG TAB PO SCH ×2 (10:00→22:00)
[2017-03-26] MEDS: CARVEDILOL 3.125 MG TAB PO SCH ×2 (10:00→22:00)
[2017-03-26] MEDS: BUMETANIDE INJECTION 12.5 MG in GIVE UN-DILUTED 0 ML IV SCH ×2 (10:15→20:48)
[2017-03-26 10:48] LABS: Allen Test Yes; Base Excess -4.9 mmol/L (-2.0-2.0); Blood 02Sat 93.4 % (96-100); Blood COHb 0.3 % (0.5-1.5); Blood MetHb 0.4 % (0.0-1.5); HCO3 19.9 mmol/L (22-26.0); HHb 6.6 % (0.0-5.0); MODE VENT - A/C; O2Hb 92.7 % (94.0-97.0); PCO2 36.1 mmHg (35.0-45.0); PCO2(T) 36.1 mmHg (35.0-45.0); PO2 79.2 mmHg (80.0-100.0); PO2(T) 79.2 mmHg (80.0-100.0); Sample Type Arterial
[2017-03-26] MEDS: NOREPINEPHRINE BITARTRATE 250 ML IV SCH ×3 (11:11→22:45)
[2017-03-26] MEDS: PANTOPRAZOLE 40 MG TAB PO SCH (11:11)
[2017-03-26] MEDS: metroNIDAZOLE 500MG/100ML 100 ML IV SCH ×2 (13:52→23:54)
[2017-03-26] MEDS: CLINDAMYCIN 600MG IV 50 ML IV SCH ×2 (14:00→22:18)
[2017-03-26] MEDS: VASOPRESSIN 50 UNITS in SODIUM CHL 0.9% 247.5 ML IV SCH (17:30)
[2017-03-26 20:04] LABS: Potassium 5.3 mmol/L (3.5-5.1)
[2017-03-26] MEDS ORDERED: FUROSEMIDE 40 MG/4 ML VIAL ONE (23:09)
[2017-03-26] MEDS ORDERED: ALBUMIN 25% 50 ML IV ONE (23:09)
[2017-03-26 23:18] LABS: Allen Test Yes; Blood 02Sat 71.6 % (96-100); Blood COHb 0.2 % (0.5-1.5); Blood MetHb 0.5 % (0.0-1.5); HCO3 17.3 mmol/L (22-26.0); HHb 28.2 % (0.0-5.0); MODE VENT - A/C; O2Hb 71.1 % (94.0-97.0); PCO2 63.8 mmHg (35.0-45.0); PCO2(T) 63.8 mmHg (35.0-45.0); PO2 51.5 mmHg (80.0-100.0); PO2(T) 51.5 mmHg (80.0-100.0); Sample Type Arterial; pH 7.051 (7.350-7.450)
[2017-03-26] MEDS ORDERED: SODIUM BICARBONATE 8.4% INJ 50ML SYRINGE ONE ×2 (23:26→23:27)
[2017-03-26 23:31] LABS: DEFINITIVE SEE PRINTOUT; Hemoglobin 9.1 g/dL (12.2-16.2); Mean Corpuscular Hemoglobin 34.2 pg (28.0-32.0); Mean Corpuscular Hgb Conc. 32.5 g/dL (32.0-36.0); Mean Corpuscular Volume 105.4 fL (80.0-100.0); Mean Platelet Volume 9.4 fL (7.4-10.4); Platelet Count (auto) 179 10^3/uL (140-450); SUSPECT SEE PRINTOUT; White Blood Cell 19.3 10^3/uL (4.4-10.8)
[2017-03-26 23:53] LABS: BUN/Creatinine Ratio 18.7; Calcium 7.9 mg/dL (8.5-10.1); Magnesium 2.1 mg/dL (1.6-2.6)
[2017-03-27] VITALS (74 sets, daily range): BP systolic 53–123; BP diastolic 26–56
[2017-03-27] MEDS ORDERED: ALBUMIN 25% 50 ML IV ONE
[2017-03-27] MEDS ORDERED: SODIUM BICARB 50ML SYR 100 ML in SODIUM CHLORIDE 0.9% 1,000 ML IV ONE ×2
[2017-03-27] MEDS: MIDAZOLAM DRIP 100 mg/100mL NS 100 ML IV SCH (00:07)
[2017-03-27 00:10] LABS: Red Cell Distribution Width 25.8 % (11.6-16.0)
[2017-03-27 00:11] LABS: Metamyelocytes % 0; Myelocytes % 0; Promyelocytes % 0; Reactive Lymphocytes 0
[2017-03-27] MEDS ORDERED: DOPamine 1600MCG/ML 250 ML IV SCH (00:12)
[2017-03-27 00:14] LABS: Potassium 5.6 mmol/L (3.5-5.1)
[2017-03-27] MEDS ORDERED: SODIUM BICARBONATE 8.4 % INJ 50ML VIAL IV ONE ×4 (00:15→17:00)
[2017-03-27] MEDS ORDERED: FUROSEMIDE 40 MG/4 ML VIAL IV ONE (00:15)
[2017-03-27] MEDS ORDERED: DOPamine 1600MCG/ML 250 ML IV ONE ×2 (00:16→18:22)
[2017-03-27] MEDS: ACCU-CHEK COMFORT CURVE STRIP VI SCH ×4 (00:27→17:34)
[2017-03-27 00:39] LABS: Anisocytosis Marked; Burr Cells MODERATE; Hypersegmented Neutrophils Present; Macrocytosis Slight; Ovalocytes MODERATE; Platelet Estimate Adequate
[2017-03-27 00:40] LABS: Schistocytes FEW
[2017-03-27 00:53] LABS: Allen Test Yes; Base Excess -13.3 mmol/L (-2.0-2.0); Blood 02Sat 61.4 % (96-100); Blood COHb 0.3 % (0.5-1.5); Blood MetHb 0.3 % (0.0-1.5); HHb 38.4 % (0.0-5.0); MODE VENT - PCV; PCO2 75.3 mmHg (35.0-45.0); PCO2(T) 75.3 mmHg (35.0-45.0); PO2 42.8 mmHg (80.0-100.0); PO2(T) 42.8 mmHg (80.0-100.0); Sample Type Arterial; Spont Vt 494; pH 6.997 (7.350-7.450)
[2017-03-27] MEDS ORDERED: SODIUM BICARBONATE 8.4% INJ 50ML SYRINGE ONE ×2 (01:00→17:01)
[2017-03-27] MEDS: SODIUM BICARB 50ML SYR 150 ML in SODIUM CHLORIDE 0.9% 1,000 ML IV SCH ×2 (01:15→08:55)
[2017-03-27 01:52] LABS: Allen Test Yes; Base Excess -11.8 mmol/L (-2.0-2.0); Blood 02Sat 90.3 % (96-100); Blood COHb 0.4 % (0.5-1.5); Blood MetHb 0.6 % (0.0-1.5); HCO3 16.8 mmol/L (22-26.0); HHb 9.6 % (0.0-5.0); MODE VENT - PCV; O2Hb 89.4 % (94.0-97.0); PIP 34; Sample Type Arterial; Spont Vt 436; pH 7.136 (7.350-7.450)
[2017-03-27] MEDS ORDERED: BUMETANIDE INJECTION 25 MG in GIVE UN-DILUTED 0 ML IV SCH (02:00)
[2017-03-27 03:07] LABS: Allen Test Modified; Base Excess -8.4 mmol/L (-2.0-2.0); Blood 02Sat 77.1 % (96-100); Blood COHb 0.4 % (0.5-1.5); Blood MetHb 0.5 % (0.0-1.5); HCO3 20.7 mmol/L (22-26.0); HHb 22.7 % (0.0-5.0); MODE VENT - PCV; O2Hb 76.4 % (94.0-97.0); PCO2 61.7 mmHg (35.0-45.0); PCO2(T) 61.7 mmHg (35.0-45.0); PIP 34; PO2 49.4 mmHg (80.0-100.0); PO2(T) 49.4 mmHg (80.0-100.0); Sample Type Arterial; Spont Vt 385; pH 7.143 (7.350-7.450)
[2017-03-27] MEDS ORDERED: VASOPRESSIN 20 UNIT/ML ONE ×2 (03:31→12:59)
[2017-03-27] MEDS: VASOPRESSIN 50 UNITS in SODIUM CHL 0.9% 247.5 ML IV SCH (03:35)
[2017-03-27 03:41] LABS: CONDITION Y; DEFINITIVE SEE PRINTOUT; Hematocrit 28.2 % (36.0-46.0); Hemoglobin 9.2 g/dL (12.2-16.2); Mean Corpuscular Hemoglobin 34.8 pg (28.0-32.0); Mean Corpuscular Hgb Conc. 32.5 g/dL (32.0-36.0); Mean Corpuscular Volume 107.3 fL (80.0-100.0); Mean Platelet Volume 9.5 fL (7.4-10.4); Platelet Count (auto) 181 10^3/uL (140-450); SUSPECT SEE PRINTOUT; White Blood Cell 17.3 10^3/uL (4.4-10.8)
[2017-03-27] MEDS: NOREPINEPHRINE BITARTRATE 250 ML IV SCH ×2 (03:48→06:50)
[2017-03-27 04:03] LABS: Albumin 1.7 g/dL (3.4-5.0); BUN/Creatinine Ratio 18.6; Calcium 7.6 mg/dL (8.5-10.1); Potassium 5.2 mmol/L (3.5-5.1)
[2017-03-27 04:05] LABS: Bilirubin, Total 0.6 mg/dL (0.2-1.0); Total Protein 4.7 g/dL (6.4-8.2)
[2017-03-27 04:08] LABS: Red Cell Distribution Width 27.6 % (11.6-16.0)
[2017-03-27 04:09] LABS: Metamyelocytes % 0; Myelocytes % 0; Promyelocytes % 0; Reactive Lymphocytes 0
[2017-03-27 04:27] LABS: Allen Test Yes; Base Excess -7.8 mmol/L (-2.0-2.0); Blood 02Sat 97.2 % (96-100); Blood COHb 0.2 % (0.5-1.5); Blood MetHb 0.4 % (0.0-1.5); HCO3 19.2 mmol/L (22-26.0); HHb 2.8 % (0.0-5.0); MODE VENT - PCV; O2Hb 96.6 % (94.0-97.0); PCO2 45.8 mmHg (35.0-45.0); PCO2(T) 45.8 mmHg (35.0-45.0); PIP 38; PO2 108.8 mmHg (80.0-100.0); PO2(T) 108.8 mmHg (80.0-100.0); Sample Type Arterial; Spont Vt 473; pH 7.241 (7.350-7.450)
[2017-03-27 04:28] LABS: Platelet Estimate Adequate
[2017-03-27 04:29] LABS: Anisocytosis Moderate; Burr Cells MODERATE; Macrocytosis Moderate; Ovalocytes MODERATE; Schistocytes FEW
[2017-03-27] MEDS: AMIODARONE HCL 200 MG TAB PO SCH ×2 (05:40→13:22)
[2017-03-27] MEDS: CLINDAMYCIN 600MG IV 50 ML IV SCH ×2 (05:44→13:21)
[2017-03-27] MEDS: DEXTROSE (50%) 50ML SYRG IV PRN ×3 (05:55→11:46)
[2017-03-27] MEDS: InsuLIN REG 1unit/0.01ml Soln (100units/ml) SC SCH ×4 (06:00→17:34)
[2017-03-27] MEDS: IPRATROPIUM BROM 0.5 MG/2.5ML INH SOL NEB SCH ×3 (06:26→18:41)
[2017-03-27] MEDS: ALBUTEROL SULF 2.5 MG/0.5ML(0.5%) NEB SOLN NEB SCH ×3 (06:26→18:41)
[2017-03-27] MEDS: BUDESONIDE (INHALATION) 0.5 MG/2 ML NEB NEB SCH (06:27)
[2017-03-27] MEDS: metroNIDAZOLE 500MG/100ML 100 ML IV SCH (06:49)
[2017-03-27] MEDS: fentaNYL Drip 2500mCg/250mlNS 250 ML IV SCH ×2 (09:14→15:30)
[2017-03-27] MEDS: PROPOFOL 100 ML IV SCH (09:14)
[2017-03-27] MEDS: cefTRIAXone 1GM/50ML D5W 50 ML IV SCH (09:21)
[2017-03-27] MEDS: CARVEDILOL 3.125 MG TAB PO SCH (09:22)
[2017-03-27] MEDS: CAPTOPRIL 12.5 MG TAB PO SCH (09:22)
[2017-03-27] MEDS ORDERED: DOBUTamine 1000MCG/ML 250 ML IV SCH (09:30)
[2017-03-27] MEDS ORDERED: ENOXAPARIN SOD 40 MG/0.4 ML SYRINGE SC SCH (10:00)
[2017-03-27] MEDS ORDERED: PANTOPRAZOLE SODIUM 40 MG/10 ML VIAL IV SCH (10:00)
[2017-03-27] MEDS ORDERED: ENOXAPARIN SOD 30 MG/0.3 ML SYRINGE SC SCH (10:00)
[2017-03-27] MEDS ORDERED: PHENYLEPHRINE IV 250 ML IV ONE (10:59)
[2017-03-27] MEDS ORDERED: DEXTROSE 10% 1,000 ML IV SCH (11:00)
[2017-03-27] MEDS: PHENYLEPHRINE INJ 20 MG in SODIUM CHL 0.9% 250 ML IV SCH ×2 (11:23→13:22)
[2017-03-27] MEDS ORDERED: PHENYLEPHRINE INJ 20 MG in SODIUM CHL 0.9% 250 ML IV SCH (14:31)
[2017-03-27] MEDS ORDERED: EPINEPHrine HCL 250 ML IV SCH (14:55)
[2017-03-27] MEDS: PHENYLEPHRINE INJ 40 MG in SODIUM CHL 0.9% 250 ML IV SCH ×2 (15:19→18:28)
[2017-03-27 15:39] LABS: Allen Test Modified; Base Excess -21.7 mmol/L (-2.0-2.0); Blood 02Sat 87.9 % (96-100); Blood COHb 0.1 % (0.5-1.5); Blood MetHb 0.5 % (0.0-1.5); HCO3 10.8 mmol/L (22-26.0); MODE VENT - PCV; O2Hb 87.4 % (94.0-97.0); PCO2 58.5 mmHg (35.0-45.0); PCO2(T) 58.5 mmHg (35.0-45.0); PIP 33; Pressure Support 45; Sample Type Arterial; pH 6.886 (7.350-7.450)
== END 2017-03-28 01:40 | disposition expired | DRG 190 ==
LOC: EDUNIT# 12:47 → EDAGE 12:47 → ER 12:53 → TELE 12:54 → DOU IN ICU 03-18 17:42 → TELE-CENTR 03-20 19:18 → DOU IN ICU 03-21 11:08 → ICU WEST 03-21 18:14
PROVIDERS: ADMIT Internal Medicine; ATTEND Internal Medicine
PROC: 5A09557 Assistance with Respiratory Ventilation, Greater than 96 Consecutive Hours, Continuous Positive Airway Pressure (ICD-10-PCS; 2017-03-17)
PROC: 4A023N7 Measurement of Cardiac Sampling and Pressure, Left Heart, Percutaneous Approach (ICD-10-PCS; principal; 2017-03-21)
PROC: B2111ZZ Fluoroscopy of Multiple Coronary Arteries using Low Osmolar Contrast (ICD-10-PCS; 2017-03-21)
PROC: B2151ZZ Fluoroscopy of Left Heart using Low Osmolar Contrast (ICD-10-PCS; 2017-03-21)
PROC: 5A02210 Assistance with Cardiac Output using Balloon Pump, Continuous (ICD-10-PCS; 2017-03-21)
PROC: 30233N1 Transfusion of Nonautologous Red Blood Cells into Peripheral Vein, Percutaneous Approach (ICD-10-PCS; 2017-03-21)
PROC: 0BH17EZ Insertion of Endotracheal Airway into Trachea, Via Natural or Artificial Opening (ICD-10-PCS; 2017-03-26)
PROC: 5A1945Z Respiratory Ventilation, 24-96 Consecutive Hours (ICD-10-PCS; 2017-03-26)
DX: I21.3 ST elevation (STEMI) myocardial infarction of unspecified site (principal); N17.0 Acute kidney failure with tubular necrosis; J96.01 Acute respiratory failure with hypoxia; R57.0 Cardiogenic shock; E43 Unspecified severe protein-calorie malnutrition; I95.9 Hypotension, unspecified; I13.0 Hypertensive heart and chronic kidney disease with heart failure and stage 1 through stage 4 chronic kidney disease, or unspecified chronic kidney disease; I42.9 Cardiomyopathy, unspecified; I50.43 Acute on chronic combined systolic (congestive) and diastolic (congestive) heart failure; E11.22 Type 2 diabetes mellitus with diabetic chronic kidney disease; I47.1 Supraventricular tachycardia; E11.65 Type 2 diabetes mellitus with hyperglycemia; I48.91 Unspecified atrial fibrillation; N28.1 Cyst of kidney, acquired; D64.9 Anemia, unspecified; N18.3 Chronic kidney disease, stage 3 (moderate); I25.10 Atherosclerotic heart disease of native coronary artery without angina pectoris; E87.1 Hypo-osmolality and hyponatremia; E87.8 Other disorders of electrolyte and fluid balance, not elsewhere classified; I70.0 Atherosclerosis of aorta; J45.909 Unspecified asthma, uncomplicated; Z66 Do not resuscitate; Z96.653 Presence of artificial knee joint, bilateral; E78.5 Hyperlipidemia, unspecified; Z85.07 Personal history of malignant neoplasm of pancreas; Z71.89 Other specified counseling; Z92.21 Personal history of antineoplastic chemotherapy; Z93.4 Other artificial openings of gastrointestinal tract status; Z88.0 Allergy status to penicillin; Z68.35 Body mass index [BMI] 35.0-35.9, adult
CPT/HCPCS: 36415; 36600; 51702; 71010; 74176; 76775; 80048; 80053; 81001; 82306; 82570; 82805; 82962; 83036; 83605; 83735; 83880; 83970; 84100; 84132; 84156; 84300; 84484; 85007; 85025; 85027; 85610; 85730; 86850; 86870; 86900; 86901; 86902; 86920; 86922; 87040; 87070; 87081; 87205; 87493; 93005; 93306; 93458; 93970; 94002; 94003; 94640; 94660; 96365; 96366; 96372; 96375; 96376; 99152; 99291; C9113; J0171; J0330; J0696; J1815; J2250; J3010; J3490; J7060